=== PATIENT | female | born 2000 | race Caucasian/White ===

== ENCOUNTER 2020-10-04 11:51 | Observation (INO) ==
[2020-10-04 14:20] LABS: ABS Lymphocytes 1.3 10^3/ul (1.0-4.8); ABS Monocytes 0.8 10^3/ul (0-0.8); ABS Neutrophils 12.4 10^3/ul (1.5-7.7); Eosinophil % 0.1 %; Hematocrit 41 % (35-47); Hemoglobin 13.9 g/dL (12.0-16.0); Lymphocyte % 9.1 %; Mean Corpuscular HGB Conc 34 g/dL (31-36); Mean Corpuscular Hemoglobin 31 pg (27-31); Mean Corpuscular Volume 90 fL (80-97); Mean Platelet Volume 8.8 fL (7.4-10.4); Platelet Count 246 10^3/uL (150-450); Red Blood Count 4.51 10^6 /uL (3.70-4.87); Red Cell Distribution Width 13 % (10-15); White Blood Count 14.6 10^3/uL (3.5-10.8)
[2020-10-04 14:41] LABS: Anion Gap 7 mmol/L (2-11); BUN/Creatinine Ratio 14.3 (8-20); Blood Urea Nitrogen 7 mg/dL (6-24); C Reactive Protein 13.83 mg/L (<8.01); CO2 Carbon Dioxide 26 mmol/L (22-32); Calcium 9.2 mg/dL (8.6-10.3); Chloride 104 mmol/L (101-111); EGFR African American 194.8 (>60); Glucose 80 mg/dL (70-100); Lipase 20 U/L (11.0-82.0); Potassium 3.8 mmol/L (3.5-5.0); Sodium 137 mmol/L (135-145)
[2020-10-04] MEDS ORDERED: Iohexol 300 (CONTRAST) 10 ML SDV IV ONE (15:00)
[2020-10-04] MEDS ORDERED: Ondansetron 4 mg VIAL 2 MG/ML 2 ml VIAL IV ONE (15:23)
[2020-10-04] MEDS ORDERED: Piperacillin/Tazobac ADVAN 3.375 GM in NS 0.9% 100 ml BAG 100 ML IV ONE (15:23)
[2020-10-04] MEDS ORDERED: Morphine 4 MG/ML VIAL (1 ml) IV ONE ×2 (15:23→18:52)
[2020-10-04 15:24] LABS: Urine Appearance Clear; Urine Bilirubin Negative (Negative); Urine Blood Negative (Negative); Urine Color Yellow; Urine Glucose Negative (Negative); Urine Ketones 1+ (Negative); Urine Nitrite Negative (Negative); Urine Protein Negative (Negative); Urine Specific Gravity 1.025 (1.010-1.030); Urine Urobilinogen Negative (Negative)
[2020-10-04 15:41] LABS: HCG Pregnancy < 0.60 mIU/mL
[2020-10-04] MEDS ORDERED: Famotidine IV 10 MG/ML 2 ml VIAL (20 mg) ONE (20:25)
[2020-10-04] MEDS ORDERED: Sodium Citrate/Citric Acid LIQ 15 ML UDC ONE (20:25)
[2020-10-04] MEDS ORDERED: Sodium Citrate/Citric Acid LIQ 15 ML UDC PO ONE (20:26)
[2020-10-04] MEDS ORDERED: Buffered Lidocaine 1% SYRIN 1 ml INTRADERM ONE (20:26)
[2020-10-04] MEDS ORDERED: Famotidine IV 10 MG/ML 2 ml VIAL (20 mg) IV ONE (20:26)
[2020-10-04] MEDS ORDERED: Naloxone 0.4 mg VIAL 0.4 mg/ml 1 ml VIAL IV PRN (20:27)
[2020-10-04] MEDS ORDERED: oxyCODONE/Acetamin 5/325 mg TAB PO PRN (20:27)
[2020-10-04] MEDS ORDERED: HYDROcodone/ACETAMIN 5/325 mg TAB PO PRN (20:27)
[2020-10-04] MEDS ORDERED: DiMENhydriNATE IV 50 mg/ml 1 ml VIAL IV PUSH PRN (20:27)
[2020-10-04] MEDS ORDERED: fentaNYL 100 mcg/2 ml 50 MCG/ML VIAL IV PRN (20:27)
[2020-10-04] MEDS ORDERED: Propofol 10 MG/ML 20 ML BTL ONE (20:37)
[2020-10-04] MEDS ORDERED: Succinylcholine 200 mg VIAL 20 mg/ml 10 ml VIAL (200 mg) ONE (20:37)
[2020-10-04] MEDS ORDERED: Bupivacaine 0.25% SDV 30 ML ONE (20:37)
[2020-10-04] MEDS ORDERED: fentaNYL 100 mcg/2 ml 50 MCG/ML VIAL ONE (20:37)
[2020-10-04] MEDS ORDERED: Lidocaine 2% PF 5 ML VIAL ONE (20:38)
[2020-10-04] MEDS ORDERED: Midazolam 2 mg/2 ml VIAL 1 mg/ml 2 ml VIAL (2 mg) ONE (20:40)
[2020-10-04] MEDS ORDERED: Lactated Ringers 1000 ml BAG 1,000 ML IVPB SCH ×2 (21:00→23:00)
[2020-10-04] MEDS ORDERED: Lactated Ringers 1000 ml BAG 1,000 ML IV SCH (21:00)
[2020-10-04] MEDS ORDERED: Piperacillin/Tazobactam VIAL 3.375 GM in NS 0.9% 100 ml BAG 100 ML IVPB SCH (21:00)
[2020-10-04] MEDS ORDERED: EPHEDrine (Pressors) 50 MG/ML VIAL ONE (21:05)
[2020-10-04] MEDS ORDERED: Dexamethasone IV 4 MG/ML VIAL 1 ml VIAL ONE (21:12)
[2020-10-04] MEDS ORDERED: Rocuronium 50 mg VIAL 10 mg/ml 5 ml VIAL (50 mg) ONE (21:17)
[2020-10-04] MEDS ORDERED: Ondansetron 4 mg VIAL 2 MG/ML 2 ml VIAL ONE (21:33)
[2020-10-04] MEDS ORDERED: HYDROmorphone 1 MG/1 ML SYRINGE IV SLOW PU PRN (22:01)
[2020-10-04] MEDS ORDERED: Ondansetron 4 mg VIAL 2 MG/ML 2 ml VIAL IV PRN (22:01)
[2020-10-04] MEDS ORDERED: Zosyn per Pharmacy NOTE FOLLOW UP PRN (23:25)
[2020-10-05] MEDS: NS 0.9% 1,000 ML IV SCH ×2 (01:06→10:25)
[2020-10-05] MEDS: Piperacillin/Tazobactam VIAL 3.375 GM in NS 0.9% 100 ml BAG 100 ML IVPB SCH ×2 (01:09→08:10)
[2020-10-05] MEDS: oxyCODONE/Acetamin 5/325 mg TAB PO PRN ×3 (01:17→14:14)
[2020-10-05 11:28] VITALS: BP 111/52
== END 2020-10-05 14:52 | disposition home or self-care (01) ==
LOC: ED 11:51 → SSU 19:56 → OR 19:56
PROVIDERS: ADMIT Surgery; ATTEND Surgery